=== PATIENT | female | born 1960 | race Caucasian/White ===

== ENCOUNTER → 2018-08-12 05:49 | Day surgery (SDC) | payer BC ==
[~2018-08-12] VITALS: Ht 165.1 cm; Wt 113.4 kg
--- NOTE | ~2018-08-12 | OP ---
PATIENT NAME: NAYELI COSTA MEDICAL RECORD: [id number] :56 LOCATION:D.OPS ADMISSION DATE: SURGEON: DANIELE KATZ MD DATE OF OPERATION: 08/12/2018 PREOPERATIVE DIAGNOSES: 1. Incarcerated ventral incisional hernia. 2. Hypertension. 3. Hypercholesterolemia. POSTOPERATIVE DIAGNOSES: 1. Incarcerated ventral incisional hernia. 2. Hypertension. 3. Hypercholesterolemia. PROCEDURE: Ventral incisional hernia repair with 6.4 cm Proceed mesh. SURGEON: Daniele Katz MD ELECTRIC TRANSFER OPERATOR: Avis Peters APRN REPORT OF PROCEDURE: The patient's abdomen was prepped and draped in sterile fashion. A transverse incision was made overlying the large mass. Electrocautery was used to dissect through the subcutaneous tissues. Eventually, we encountered a large hernia sac with incarcerated fatty contents. We were able to dissect around the base of this and eviscerate this through the skin incision. At this point, we could clearly visualize the hernia defect. I opened up the hernia sac can and see that this was all omentum, made multiple attempts to try and reduce this omentum back into the abdominal cavity, but due to the swelling from chronically being incarcerated, it was not able to go back in. Eventually, I just had to ligate the omentum using multiple interrupted 2-0 silks with a clamp and tie technique. After removing this portion of the omentum, then I was able to reduce the hernia. The hernia sac was excised down to the fascial edges. The hernia defect was about 2.5 cm in greatest diameter. We freed up the surface of the fascia above and below. At this point, a 6.4 cm Proceed mesh was inserted and sutured down on all 4 sides using interrupted 0 Prolenes. The mesh appeared to rest in good position. We irrigated out the wound and assured there was no sign of any bleeding. We then closed the fascia transversely using running 0 PDS incorporating some bites of the mesh as we ran the sutures. There was good approximation of the fascia overlying the mesh. We then irrigated out the wound one last time with normal saline and assured there was no bleeding source was present. At this point, the subcutaneous tissues were reapproximated with interrupted 3-0 Vicryl and the skin was closed with running subcutaneous 5-0 Monocryl. A 20 mL of 0.25% Marcaine with epinephrine were infused into the surrounding tissues and the wound was dressed appropriately. COMPLICATIONS: None. CONDITION: Stable. ANESTHESIA: General endotracheal and local. BLOOD LOSS: Minimal. OPERATIVE REPORT [id number] NAYELI COSTA TRANSINT:[id number] Voice Confirmation ID: [id number] DOCUMENT ID: [id number] DANIELE KATZ MD at 1441 CC: RY GOMEZ [id number] DICTATION DATE: 08/12/18906 PACK TRAIN DRIVER: 08/12/18 09 REG [facility] [address] [place] [address]
[~2018-08-12 05:49] MED LIST: ABILIFY10 MG PO; ATIVAN0.5 MG PO; BUPROPION XL300 MG PO; CENTRUM SILVER1 EAC3 PO; EFFEXOR XR75 MG PO; LIPITOR10 MG PO; MICARDIS20 MG PO; NORCO 10-325 TA1 TAB PO; PROTONIX40 MG PO
[2018-08-12 06:12] LABS: BASOPHILS 0.4 % (0-2); EOSINOPHILS 2.8 % (0-7); HEMATOCRIT 40.2 % (36.0-48.0); HEMOGLOBIN 13.1 g/dL (12-16); IMMATURE GRANULOCYTES 0.4 % (0-5); LYMPHOCYTES 38.6 % (15-50); MCH 30.8 pg (26.0-34.0); MCHC 32.6 g/dL (31.0-37.0); MCV 94.4 fL (80.0-100.0); MEAN PLATELET VOLUME 10.2 fL (7.4-10.4); MONOCYTES 10.1 % (2-11); NEUTROPHILS 47.7 % (40-80); PLATELET COUNT 226 10x3/uL (130-400); RBC 4.26 10x6/uL (4.00-5.40); RDW 14.3 % (11.5-14.5); WBC 7.1 10x3/uL (4.8-10.8)
[2018-08-12 06:28] LABS: ANION GAP 11.4 mmol/L (8-16); CREATININE - SERUM 1.3 mg/dL (0.6-1.3); POTASSIUM - SERUM 4.4 mmol/L (3.5-5.1)
[2018-08-12 07:01] VITALS: BP 137/65; Ht 165.1 cm; Wt 113.4 kg
== END | disposition home or self-care (01) ==
LOC: D.OPS 05:49
PROVIDERS: Surgery
DX: K43.9 Ventral hernia without obstruction or gangrene (principal)

== ENCOUNTER → 2019-08-02 09:59 | Outpatient (CLI) | payer BC ==
[2018-08-12 07:01] VITALS: BMI 41.6
== END | disposition home or self-care (01) ==
LOC: D.US 09:59
PROVIDERS: ATTEND Family Medicine
DX: N93.8 Other specified abnormal uterine and vaginal bleeding (principal)